=== PATIENT | female | born 2000 | race Caucasian/White ===

== ENCOUNTER 2020-12-30 15:57 | Emergency (ER) | payer OTHER, SELFPAY ==
[2020-12-30 15:58] VITALS: BP 126/78; PULSE 87; RESP 16; TEMP 36.6; O2SAT 98; BMI 19.0
--- NOTE | 2020-12-30 16:11 | ED.DCSUM_ITS ---
History of Present Illness Chief Complaint: Flank Pain Informant: Patient Narrative: 20-year-old female presenting with right flank pain for the past couple of days. It is intermittent. Patient has history of kidney stones and this feels similar. She called her primary care provider who gave her some oxycodone, but told her if she still has pain on Wednesday she should come to the emergency room for CAT scan. Patient has no concern for . She does have some mild dysuria. She is not had fever, chills. She is not vomiting. Past Medical History - Allergies and Home Meds Allergies/Adverse Reactions: Allergies No Known Allergies Allergy (Verified 12/30/20 15:58) Primary Care Physician: Justo Marshall MD [Primary Care Provider] - Prior records reviewed: Yes Past Medical History: - - Kidney stones Lives: Alone Alcohol: None Drugs: None Review of Systems General: Denies: Chills, Fever, Sweats Eyes: Denies: Visual changes - bilaterally, Diplopia ENT: Denies: Rhinorrhea, Sore throat Cardiovascular: Denies: Chest pain, Palpitations Respiratory: Reports: Dyspnea Gastrointestinal: Reports: Abdominal pain, Nausea. Denies: Diarrhea, Constipation Genitourinary: Reports: Dysuria. Denies: Hematuria, Frequency Musculoskeletal: Reports: Back pain - Right flank pain. Denies: Myalgias, Arthralgias Skin: Denies: Rash, Abscess Neurological: Denies: Headache, Weakness, Parasthesia Psych: Denies: Depression, Anxiety Physical Exam Vital Signs/Narrative: Vital Signs Temp Pulse Resp BP Pulse Ox 12/30/20 15:58 97.8 F 87 16 126/78 H 98 Inital Vital Signs reviewed: Yes General: Well nourished, No Acute Distress Head: Normocephalic, Atraumatic Eyes: Perrl, EOMI ENT: Moist mucous membranes, No rhinorrhea Neck: Supple, Nontender Cardiovascular: Regular rate, Regular rhythm Respiratory: No distress, CTA bilaterally Abdomen: Soft, Nondistended. Negative for: Tender Back: CVA tenderness - Right. Negative for: Spinal tenderness Extremities: Nontender, No edema Skin: Normal color, No rash Neurological: Alert, Oriented x3, Cranial nerves II-XII grossly intact Psychological: Normal affect, Normal Mood Diagnostic/Tx/Re-eval Clinical Impression(s) from Imaging Studies Abdomen/Pelvis CT 12/30/20 16:11 IMPRESSION: No urinary calculi. No hydronephrosis. No bowel obstruction or inflammation. Normal appendix. Constipation. Small amount of pelvic free fluid. Electronically Signed: Jacob Palencia MD at 17:23 EST Tel , Service support , Laboratory Data 12/30/20 12/30/20 12/30/20 16:00 16:12 16:12 WBC 8.3 RBC 4.45 Hgb 14.3 Hct 42.6 MCV 95.7 MCH 32.1 H MCHC 33.6 RDW Std Deviation 41.5 RDW Coeff of Wanda 11.9 Plt Count 323 MPV 9.1 Immature Gran % (Auto) 0.400 Neut % (Auto) 58.7 Lymph % (Auto) 29.4 [place] % (Auto) 8.8 Eos % (Auto) 2.3 Baso % (Auto) 0.4 Absolute Neuts (auto) 4.9 Absolute Lymphs (auto) 2.45 Nucleated RBC % 0 Sodium 139 Potassium 3.7 Chloride 105 Carbon Dioxide 30.0 Anion Gap 4 L BUN 12 Creatinine 0.90 Estim Creat Clear Calc 77.86 Est GFR (MDRD) Af Amer 100 Est GFR (MDRD) Non-Af 82 BUN/Creatinine Ratio 13.3 Glucose 106 Calcium 8.8 Urine Color Yellow Urine Clarity Cloudy Urine pH 8.0 Ur Specific [place] 1.015 Urine Protein Negative Urine Glucose (UA) Normal Urine Ketones Negative Urine Occult Blood Negative Urine Nitrite Negative Urine Bilirubin Negative Urine Urobilinogen Normal Ur Leukocyte Esterase 25 H Urine RBC 0 SEEN Urine WBC 0-5 SEEN Ur Squamous Epith Cells 0-5 SEEN Amorphous Sediment 1+ Urine Bacteria 0 SEEN Urine Mucus 0 SEEN - Medical Decision Making 20-year-old female with history of renal calculi presenting for right flank pain. Its been there for a couple of days. She has been taking narcotic pain medications prescribed by her primary care physician. On exam she does not have any significant abdominal pain or CVA tenderness. She was told to come to the ER for a CAT scan due to her history of kidney stones. Her urinalysis identifies no infection or hematuria. CBC and BMP are unremarkable. CT of the abdomen pelvis without contrast is negative for acute findings. Patient counseled on this. She did request more narcotic pain medication however given her benign exam and negative work-up I do not think this is appropriate. She will be given Naprosyn for home. She will follow-up with her PCP. Impression: 1. Right flank pain ED Disposition - Plan for ED Patient: Disposition: Home or Assisted Living Instructions: ED Flank Pain, Uncertain Cause Prescriptions: Naproxen [Naprosyn] 500 mg PO BID PRN #20 tab Prescription Printed Referrals: Justo Marshall MD [Primary Care Provider] -
--- NOTE | 2020-12-30 16:11 | CT_ITS ---
STUDY: CT ABDOMEN AND PELVIS WITHOUT CONTRAST REASON FOR EXAM: Female, 20 years old. Kidney stone RADIATION DOSAGE (If Supplied By Facility): CTDIvol = ( 6.04 ) mGy, DLP = ( 276.33 ) mGycm TECHNIQUE: Transaxial images were obtained from the dome of the diaphragm to the symphysis pubis without oral contrast, and without intravenous contrast. Sagittal and coronal images were reconstructed. Individualized dose optimization techniques were used for this CT. COMPARISON: None. FINDINGS: Evaluation of the abdominal viscera is limited in the absence of intravenous contrast. The visualized lung bases are clear. The visualized portions of the heart and pericardium are within normal limits. There are no calcified gallstones present. The liver demonstrates an unremarkable unenhanced appearance. The spleen is normal in size. The pancreas demonstrates an unremarkable unenhanced appearance. The adrenal glands are within normal limits. There are no renal or ureteral stones. There is no hydronephrosis. Normal visualized stomach. There is no bowel obstruction or inflammation. There is a large amount of stool in the colon, consistent with constipation. The appendix is visualized and appears normal. The aorta is normal in caliber. There is a small amount of pelvic free fluid. There is no free air, fluid collection or lymphadenopathy. There are no destructive osseous lesions. CT/Abdomen/Pelvis without Cont IMPRESSION: No urinary calculi. No hydronephrosis. No bowel obstruction or inflammation. Normal appendix. Constipation. Small amount of pelvic free fluid. Electronically Signed: Jacob Palencia MD at 17:23 EST Tel , Service support ,
[2020-12-30 16:33] LABS: Bacteria 0 SEEN /hpf (None Seen); Mucous, Urine 0 SEEN /hpf (<or=2+); Red Blood Cells-Urine 0 SEEN /hpf (0-5)
[2020-12-30 16:51] LABS: Absolute Lymphocyte Count 2.45 X10^3/uL (0.83-4.51); Absolute Neutrophil Count 4.9 X10^3/uL (2.0-7.7); Basophil# 0.03 X10^3/uL; Basophil% 0.4 % (0-1); Eosinophil# 0.19 X10^3/uL; Eosinophils% 2.3 % (0-5); Hematocrit 42.6 % (37-47); Hemoglobin 14.3 g/dL (12.0-15.0); Lymphocyte # 2.45 X10^3/ul (4.0); Lymphocyte % 29.4 % (19-41); Mean Corp Hgb Conc 33.6 g/dL (32-36); Mean Corpuscular Hgb 32.1 pg (27.0-32.0); Mean Corpuscular Volume 95.7 fL (81-99); Mean Platelet Vol. 9.1 fl (6.2-12.0); Monocyte# 0.73 X10^3/uL; Monocyte% 8.8 % (0-10); NRBC Flagged by Analyzer 0 % (0-5); Neutrophil # 4.89 X10^3/uL (2.7-7.7); Neutrophil % 58.7 % (47-70); Platelet Count 323 K/mm3 (150-450); RBC Distribution Width CV 11.9 % (11.6-14.6); RBC Distribution Width SD 41.5 fl (35.1-43.9); Red Blood Count 4.45 M/mm3 (4.2-5.4); White Blood Count 8.3 K/mm3 (4.4-11.0)
[2020-12-30 16:55] LABS: Color, Urine Yellow (Yellow); Glucose, Dipstick Normal (Normal); Ketone-Dipstick Negative (Negative); Leukocyte Esterase-Dipstick 25 /ul (Negative); Nitrite-Dipstick Negative (Negative); Occult Blood-Urine Negative /ul (Negative); Protein-Dipstick Negative (Negative); Specific Gravity, Urine 1.015 (1.002-1.030); Urine Bilirubin Dipstick Negative (Negative); Urine Clarity Cloudy (Clear); Urine Urobilinogen Normal (Normal)
[2020-12-30 17:00] LABS: Anion Gap 4 (5-15); BUN 12 mg/dL (7-18); BUN/Creat Ratio 13.3 RATIO (10-20); Calcium,Total 8.8 mg/dL (8.5-10.1); Chloride 105 mmol/L (98-107); EST Glomerular Filtration Rate 82 mL/min (>60); Est Glom Filt Rate - Afr Amer 100 mL/min (>60); Estimated Creatinine Clearance 77.86 ml/min; Glucose 106 mg/dL (74-106); Potassium 3.7 mmol/L (3.5-5.1); Sodium Level 139 mmol/L (136-145)
[2020-12-30 17:03] LABS: Amorphous Sediment 1+; Squamous Epithelial Cells - UA 0-5 SEEN /hpf (5-10)
[2020-12-30 17:04] LABS: White Blood Cells 0-5 SEEN /hpf (0-5)
[2020-12-30 18:00] VITALS: BP 108/64; PULSE 59; RESP 16; O2SAT 100
== END 2020-12-30 18:01 | disposition home or self-care (01) ==
PROVIDERS: Emergency Provider Student in an Organized Health Care Education/Training Program; PCP Orthopaedic Surgery
DX: R10.9 Unspecified abdominal pain (principal); R30.0 Dysuria; R11.0 Nausea; R06.00 Dyspnea, unspecified; K59.00 Constipation, unspecified; Z87.442 Personal history of urinary calculi
CPT/HCPCS: 74176; 80048; 81001; 85025; 99282; A4216

== ENCOUNTER 2021-11-07 16:08 | Outpatient (CLI) | payer BC, SELFPAY ==
[2021-11-10 16:09] LABS: Gonococcus By Nucleic Acid AMP Negative (Negative)
[2021-11-10 16:10] LABS: Chlamydia By Nucleic Acid AMP Positive (Negative)
[2021-11-14 19:55] LABS: HPV Reflexed? NOT INDICATED
== END 2021-11-07 23:59 | disposition short-term general hospital (02) ==
LOC: LABSPEC 16:10
PROVIDERS: PCP Orthopaedic Surgery; Visit Provider Obstetrics & Gynecology
DX: Z12.4 Encounter for screening for malignant neoplasm of cervix (principal); Z11.3 Encounter for screening for infections with a predominantly sexual mode of transmission
CPT/HCPCS: 87491; 87591; 88175; G0145

== ENCOUNTER 2021-12-05 16:34 | Outpatient (CLI) | payer BC, SELFPAY ==
[2021-12-09 00:06] LABS: Chlamydia By Nucleic Acid AMP Negative (Negative)
[2021-12-09 15:07] LABS: Gonococcus By Nucleic Acid AMP Negative (Negative)
== END 2021-12-05 23:59 | disposition home or self-care (01) ==
LOC: LABSPEC 16:35
PROVIDERS: PCP Orthopaedic Surgery; Visit Provider Obstetrics & Gynecology
DX: Z11.3 Encounter for screening for infections with a predominantly sexual mode of transmission (principal); A56.00 Chlamydial infection of lower genitourinary tract, unspecified
CPT/HCPCS: 87491; 87591